=== PATIENT | female | born 2000 | race Caucasian/White ===

== ENCOUNTER 2022-05-30 18:26 | Emergency (ER) | payer BC, SELFPAY ==
[2022-05-30] MEDS ORDERED: Ibuprofen 200 MG TAB ONE (18:46)
== END 2022-05-30 19:58 | disposition home or self-care (01) ==
LOC: NAV ERS 18:26
DX: S93.402A Sprain of unspecified ligament of left ankle, initial encounter (principal); F17.290 Nicotine dependence, other tobacco product, uncomplicated; X50.1XXA Overexertion from prolonged static or awkward postures, initial encounter; Y93.39 Activity, other involving climbing, rappelling and jumping off; Z79.899 Other long term (current) drug therapy